=== PATIENT | female | born 1975 | race African-American/Black ===

== ENCOUNTER 2018-09-25 18:41 | Emergency (ER) | payer SELFPAY ==
[~2018-09-25] VITALS: Ht 167.6 cm; Wt 76.5 kg
[~2018-09-25 18:41] MED LIST: PARO30TA45 PO; ZOLP-413 PO
[2018-09-25 19:24] LABS: BASOPHILS # (AUTO) 0.03 x10^3/uL (0-0.1); BASOPHILS % (AUTO) 0 % (0-1); EOSINOPHILS # (AUTO) 0.22 x10^3/uL (0-0.4); EOSINOPHILS % (AUTO) 3 % (1-7); LYMPHOCYTES # (AUTO) 3.17 x10^3/uL (1-3.4); LYMPHOCYTES % (AUTO) 44 % (22-44); MD NO; MEAN CORPUSCULAR HEMOGLOBIN 30.6 pg (27.0-34.8); MEAN CORPUSCULAR HGB CONC 33.3 g/dL (32.4-35.8); MEAN CORPUSCULAR VOLUME 92.1 fL (80-100); MEAN PLATELET VOLUME 9.4 fL (7.4-10.4); MONOCYTES # (AUTO) 0.35 x10^3/uL (0.2-0.8); MONOCYTES % (AUTO) 5 % (2-9); NEUTROPHILS # (AUTO) 3.43 x10^3/uL (1.8-6.8); NEUTROPHILS % (AUTO) 48 % (42-75); PLATELET COUNT 276 x10^3/uL (130-400); RED CELL DISTRIBUTION WIDTH 14.1 % (9.6-15.2)
[2018-09-25] MEDS ORDERED: PHENAZOPYRIDINE 200 MG TABLET PO ONE (19:30)
[2018-09-25 19:34] LABS: ALANINE AMINOTRANSFERASE 28 U/L (12-78); ALBUMIN 3.5 g/dL (3.4-5.0); ANION GAP 5 mmol/L (5-15); CALCIUM 8.7 mg/dL (8.5-10.1); CHLORIDE 107 mmol/L (98-107); CREATININE 0.77 mg/dL (0.55-1.02)
[2018-09-25 19:36] LABS: ALKALINE PHOSPHATASE 102 U/L (45-117); BILIRUBIN,TOTAL 0.2 mg/dL (0.2-1.0); TOTAL PROTEIN 7.2 g/dL (6.4-8.2)
[2018-09-25] MEDS ORDERED: PHENAZOPYRIDINE 200 MG TABLET ONE (19:40)
--- NOTE | 2018-09-25 19:47 | NUR ---
PT HERE FOR PAINFUL URINATION AND LOWER ABD PAIN. UA SENT TO LAB. PT MEDICATED. PT IN NAD. VSS. CALL LIGHT IN REACH
[2018-09-25 20:12] LABS: HCG UR SG 1.011 (1.003-1.030); MICROSCOPIC AUTO
[2018-09-25 20:22] LABS: CULTURE INDICATED? YES
[2018-09-25 20:30] VITALS: BP 115/64
--- NOTE | 2018-09-25 20:47 | NUR ---
Patient given discharge instructions and they have confirmed that they understand the instructions. Patient ambulatory with steady gait.
== END 2018-09-25 21:11 | disposition home or self-care (01) ==
LOC: ED 21:03
DX: N39.0 Urinary tract infection, site not specified (principal); Z90.710 Acquired absence of both cervix and uterus
CPT/HCPCS: 36415; 80053; 81001; 81025; 85025; 87086; 99283

== ENCOUNTER 2020-11-10 07:21 | Emergency (ER) | payer BC ==
[~2020-11-10] VITALS: Ht 167.6 cm; Wt 72.0 kg
--- NOTE | 2020-11-10 07:38 | NUR ---
DR GALLARDO BEDSIDE
--- NOTE | 2020-11-10 07:43 | NUR ---
PT SEEN AT [facility] FOR UTI, BUT PT HAS ALMOST COMPLETED ABX WITH NO RELIEF OF SYMPTOMS. PT HAS BURNING SENSATION WHEN PEEING AND "BLADDER PAIN". PT ALSO HAS RIGHT LOWER QUADRANT PAIN SOMETIMES.
[2020-11-10] MEDS ORDERED: PHENAZOPYRIDINE 200 MG TABLET PO ONE (08:00)
[2020-11-10 08:21] LABS: BASOPHILS % (AUTO) 1 % (0-1); EOSINOPHILS % (AUTO) 2 % (1-7); LYMPHOCYTES % (AUTO) 40 % (22-44); MEAN CORPUSCULAR HEMOGLOBIN 30.7 pg (27.0-34.8); MEAN CORPUSCULAR HGB CONC 32.7 g/dL (32.4-35.8); MEAN PLATELET VOLUME 9.1 fL (7.4-10.4); MONOCYTES % (AUTO) 12 % (2-9); NEUTROPHILS % (AUTO) 45 % (42-75); PLATELET COUNT 228 x10^3/uL (130-400); RED BLOOD COUNT 4.49 x10^6/uL (3.82-5.3); RED CELL DISTRIBUTION WIDTH 13.3 % (9.6-15.2)
[2020-11-10 08:24] LABS: MD NO
[2020-11-10 08:30] LABS: ALANINE AMINOTRANSFERASE 29 U/L (12-78); ALBUMIN 3.2 g/dL (3.4-5.0); CALCIUM 8.3 mg/dL (8.5-10.1); CHLORIDE 110 mmol/L (98-107); CREATININE 0.68 mg/dL (0.55-1.02)
[2020-11-10] MEDS ORDERED: PHENAZOPYRIDINE 200 MG TABLET ONE (08:32)
[2020-11-10 08:37] LABS: ALKALINE PHOSPHATASE 72 U/L (45-117); ANION GAP 4 mmol/L (5-15); BILIRUBIN,TOTAL 0.3 mg/dL (0.2-1.0); TOTAL PROTEIN 6.8 g/dL (6.4-8.2)
[2020-11-10 08:45] LABS: MICROSCOPIC INDICATED
--- NOTE | 2020-11-10 09:35 | NUR ---
PT REC'VD DISCHARGE INSTRUCTIONS AND EDUCATION. PT HAD NO FURTHER QUESTIONS. PT AMBULATED TO DCV AREA, STEADY GAIT.
[2020-11-10 09:36] VITALS: BP 118/67
== END 2020-11-10 09:38 | disposition home or self-care (01) ==
LOC: ED 08:00
DX: R10.2 Pelvic and perineal pain (principal); R30.0 Dysuria; Z87.891 Personal history of nicotine dependence
CPT/HCPCS: 36415; 80053; 81001; 83690; 84703; 85025; 87086; 99283